=== PATIENT | female | born 1990 | race Caucasian/White ===

== ENCOUNTER 2018-11-19 14:34 | Inpatient (IN) | payer MEDICAID ==
[~2018-11-19] VITALS: Ht 157.5 cm; Wt 114.8 kg
[2018-11-19 14:53] VITALS: Ht 157.5 cm; Wt 114.8 kg
[2018-11-19] MEDS ORDERED: FEMARA2.5 MG PO (15:14)
[2018-11-19 15:24] LABS: PLATELET COUNT 266 x10^3mcL (130-400)
[2018-11-19 15:26] LABS: RED CELL DISTRIBUTION WIDTH 17.2 % (11.5-14.5)
[2018-11-19 15:31] LABS: CALCIUM 9.4 mg/dL (8.5-10.1); CARBON DIOXIDE 27.7 mmol/L (21-32); CHLORIDE SERUM 105 mmol/L (98-107); CREATININE SERUM 0.8 mg/dL (0.6-1.0); GFR1 > 60 mL/min; GLUCOSE SERUM 118 mg/dL (74-106); POTASSIUM SERUM 3.8 mmol/L (3.5-5.1); SODIUM SERUM 142 mmol/L (136-145)
[2018-11-19 15:34] LABS: ALBUMIN 3.4 g/dL (3.4-5.0); ALKALINE PHOSPHATASE 103 U/L (46-116); ALT/SGPT 46 U/L (14-59); AST/SGOT 42 U/L (15-37); BILIRUBIN TOTAL 7.5 mg/dL (0.20-1.00); LIPASE 79 IU/L (73-393); TOTAL PROTEIN, SERUM 7.3 g/dL (6.4-8.2)
[2018-11-19 15:53] LABS: BAND NEUTROPHIL 2 % (0-10); MONOCYTE 6 % (0-7); SEGMENTED NEUTROPHILS 58 % (37-75)
[2018-11-19 15:55] LABS: PLATELET MORPHOLOGY PLATELETS NORMAL; rbc morphology (normal/abnorm) ABNORMAL (NORMAL)
[2018-11-19 18:58] VITALS: BP 144/85
[2018-11-19 20:48] VITALS: BP 147/90
[2018-11-20 05:26] VITALS: BP 144/83
[2018-11-20 07:57] LABS: PLATELET COUNT 232 x10^3mcL (130-400)
[2018-11-20 08:07] LABS: RED CELL DISTRIBUTION WIDTH 17.2 % (11.5-14.5)
[2018-11-20 08:11] LABS: ALKALINE PHOSPHATASE 96 U/L (46-116); ALT/SGPT 40 U/L (14-59); AST/SGOT 38 U/L (15-37); CALCIUM 9.8 mg/dL (8.5-10.1); CARBON DIOXIDE 22.4 mmol/L (21-32); CHLORIDE SERUM 106 mmol/L (98-107); CREATININE SERUM 0.7 mg/dL (0.6-1.0); GFR1 > 60 mL/min; GLUCOSE SERUM 108 mg/dL (74-106); POTASSIUM SERUM 3.7 mmol/L (3.5-5.1); SODIUM SERUM 141 mmol/L (136-145); TOTAL PROTEIN, SERUM 6.6 g/dL (6.4-8.2)
[2018-11-20 08:46] VITALS: BP 138/77
[2018-11-20 09:51] LABS: BAND NEUTROPHIL 4 % (0-10); BASOPHIL 0 % (0-2); MONOCYTE 5 % (0-7); PLATELET MORPHOLOGY PLATELETS NORMAL; SEGMENTED NEUTROPHILS 59 % (37-75); rbc morphology (normal/abnorm) ABNORMAL (NORMAL)
[2018-11-20 10:19] LABS: RED BLOOD CELLS 3.89 M/mm3 (4.10-5.10)
[2018-11-20 17:21] VITALS: BP 136/87
[2018-11-20 20:34] VITALS: BP 145/86
[2018-11-21 05:07] VITALS: BP 130/83
[2018-11-21 06:38] LABS: PLATELET COUNT 239 x10^3mcL (130-400)
[2018-11-21 06:44] LABS: RED CELL DISTRIBUTION WIDTH 17.1 % (11.5-14.5)
[2018-11-21 06:48] LABS: ALKALINE PHOSPHATASE 96 U/L (46-116); ALT/SGPT 39 U/L (14-59); AST/SGOT 33 U/L (15-37); BILIRUBIN TOTAL 8.16 mg/dL (0.20-1.00); CALCIUM 9.9 mg/dL (8.5-10.1); CHLORIDE SERUM 105 mmol/L (98-107); CREATININE SERUM 0.7 mg/dL (0.6-1.0); GFR1 > 60 mL/min; GLUCOSE SERUM 113 mg/dL (74-106); POTASSIUM SERUM 3.5 mmol/L (3.5-5.1); SODIUM SERUM 141 mmol/L (136-145); TOTAL PROTEIN, SERUM 6.6 g/dL (6.4-8.2)
[2018-11-21 06:59] LABS: ALBUMIN 2.9 g/dL (3.4-5.0)
[2018-11-21 08:18] VITALS: BP 147/96
[2018-11-21 14:42] LABS: BAND NEUTROPHIL 1 % (0-10); BASOPHIL 0 % (0-2); MONOCYTE 4 % (0-7); PLATELET MORPHOLOGY PLATELETS NORMAL; SEGMENTED NEUTROPHILS 67 % (37-75); rbc morphology (normal/abnorm) ABNORMAL (NORMAL)
[2018-11-21 17:21] VITALS: BP 160/93
[2018-11-21 21:17] VITALS: BP 102/41
[2018-11-22 06:02] VITALS: BP 125/77
[2018-11-22 06:56] LABS: PLATELET COUNT 238 x10^3mcL (130-400)
[2018-11-22 07:19] LABS: ALKALINE PHOSPHATASE 99 U/L (46-116); ALT/SGPT 34 U/L (14-59); AST/SGOT 32 U/L (15-37); BILIRUBIN TOTAL 7.99 mg/dL (0.20-1.00); CALCIUM 10.3 mg/dL (8.5-10.1); CARBON DIOXIDE 24.4 mmol/L (21-32); CHLORIDE SERUM 104 mmol/L (98-107); CREATININE SERUM 0.7 mg/dL (0.6-1.0); GFR1 > 60 mL/min; GLUCOSE SERUM 110 mg/dL (74-106); POTASSIUM SERUM 3.5 mmol/L (3.5-5.1); SODIUM SERUM 138 mmol/L (136-145); TOTAL PROTEIN, SERUM 6.6 g/dL (6.4-8.2)
[2018-11-22 07:20] LABS: ALBUMIN 2.9 g/dL (3.4-5.0)
[2018-11-22 07:21] LABS: RED CELL DISTRIBUTION WIDTH 16.8 % (11.5-14.5)
[2018-11-22 07:26] LABS: ALBUMIN 2.9 g/dL (3.4-5.0); BILIRUBIN DIRECT 6.88 mg/dL (0.0-0.2); TOTAL PROTEIN, SERUM 6.6 g/dL (6.4-8.2)
[2018-11-22 09:11] VITALS: BP 148/96
[2018-11-22 12:03] LABS: BAND NEUTROPHIL 0 % (0-10); BASOPHIL 0 % (0-2); MONOCYTE 7 % (0-7); PLATELET MORPHOLOGY PLATELETS NORMAL; SEGMENTED NEUTROPHILS 67 % (37-75)
[2018-11-22 12:04] LABS: rbc morphology (normal/abnorm) ABNORMAL (NORMAL)
[2018-11-22 13:25] VITALS: BP 148/96
== END 2018-11-22 14:19 | disposition home or self-care (01) ==
LOC: ED 14:34 → MU 17:04
PROVIDERS: Emergency Medicine; Internal Medicine Gastroenterology; ADMIT Internal Medicine
DX: K80.20 Calculus of gallbladder without cholecystitis without obstruction (principal); R17 Unspecified jaundice; K74.60 Unspecified cirrhosis of liver; R19.7 Diarrhea, unspecified; Z68.41 Body mass index [BMI] 40.0-44.9, adult; Z88.8 Allergy status to other drugs, medicaments and biological substances; Z85.43 Personal history of malignant neoplasm of ovary; Z92.21 Personal history of antineoplastic chemotherapy; Z90.710 Acquired absence of both cervix and uterus; Z90.79 Acquired absence of other genital organ(s); Z53.09 Procedure and treatment not carried out because of other contraindication
CPT/HCPCS: 74181; 78226; A9537; G0378; J0696; J2270; J2405; J2550; J7030; Q0092